=== PATIENT | male | born 1975 | race Caucasian/White ===

== ENCOUNTER 2018-01-23 04:34 | Inpatient (IN) | payer SELFPAY ==
[~2018-01-23] VITALS: Ht 175.3 cm; Wt 94.3 kg
[2018-01-23] VITALS (8 sets, daily range): BP systolic 134–153; BP diastolic 70–88
[2018-01-23] MEDS ORDERED: SODIUM CHLORIDE 0.9% 1,000 ML IV ONE (04:50)
[2018-01-23] MEDS ORDERED: ONDANSETRON HCL 4MG/2ML VIAL IV STA (04:50)
[2018-01-23] MEDS ORDERED: MIDAZOLAM HCL 2 MG/2 ML VIAL ONE (04:54)
[2018-01-23] MEDS: MIDAZOLAM HCL 2 MG/2 ML VIAL IV ONE ×2 (04:55→05:04)
[2018-01-23] MEDS ORDERED: LEVETIRACETAM 500MG PREMIX 100 ML IV ONE (05:00)
[2018-01-23 05:21] LABS: BASOPHILS % 0.7 % (0.0-2.0); EOSINOPHILS % 4.9 % (0.0-5.0); HEMATOCRIT. 35.5 % (42.0-52.0); HEMOGLOBIN. 11.9 g/dL (14.0-18.0); LYMPHOCYTES % 27.7 % (20.0-50.0); MEAN CORPUSCULAR HEMOGLOBIN 31.2 pg (28.0-32.0); MEAN CORPUSCULAR VOLUME 93.1 fL (80.0-94.0); MEAN PLATELET VOLUME 8.7 fl (7.4-10.4); MONOCYTES % 6.8 % (2.0-8.0); NEUTROPHILS % 59.9 % (40.0-76.0); PLATELET 117 x1000/uL (130-400); RED BLOOD CELL COUNT 3.81 mill/uL (4.7-6.1); RED CELL DISTRIBUTION WIDTH 14.7 % (11.6-14.6)
[2018-01-23 05:27] LABS: CHLORIDE 106 mEq/L (98-107)
[2018-01-23 05:28] LABS: INR 1.1
[2018-01-23 05:31] LABS: ETHANOL BLOOD < 10 mg/dL
[2018-01-23 05:38] LABS: CARBAMAZEPINE < 0.5 ug/mL (4-12); VALPROIC ACID < 3.0 ug/mL (50-100)
[2018-01-23 05:44] LABS: BG BASE EXCESS -7.9 mmol/L (-2.0-2.0); BG DEOXYHEMOGLOBIN 0.9 % (0.0-5.0); BG FRACTION INSPIRED OXYGEN 100; BG HCO3 ACT 19.4 mmol/L (22.0-26.0); BG METHEMOGLOBIN 0.4 % (0.0-1.5); BG OXYGEN SATURATION 99.1 % (92.0-98.5); BG OXYHEMOGLOBIN 97.7 % (94.0-97.0); BG PCO2 46.8 mmHg (35.0-45.0); BG PH 7.235 (7.350-7.450); BG PO2 301.4 mmHg (75.0-100.0); BG SAMPLE SITE RIGHT RADIAL; BG TOTAL HEMOGLOBIN 11.6 g/dL (12.0-18.0); BG VENT MODE MASK - NRB
[2018-01-23 06:16] LABS: CLARITY URINE CLEAR (CLEAR); COLOR URINE YELLOW (YELLOW); KETONES URINE NEGATIVE (NEGATIVE); LEUKOCYTE ESTERASE URINE NEGATIVE (NEGATIVE); NITRITE URINE NEGATIVE (NEGATIVE); OCCULT BLOOD URINE 3+ (NEGATIVE); PROTEIN URINE 2+ (NEGATIVE); UROBILINOGEN URINE 0.2 E.U./dL (0.2-1.0)
[2018-01-23] MEDS ORDERED: SODIUM CHLORIDE 0.9% 1,000 ML IV SCH (06:32)
[2018-01-23 06:33] LABS: *AMPHETAMINES SCREEN URINE NEGATIVE (NEGATIVE); *BARBITURATES SCREEN URINE NEGATIVE (NEGATIVE)
[2018-01-23 06:34] LABS: *BENZODIAZEPINES SCREEN URINE PRESUMTIVE POSITIVE (NEGATIVE); *COCAINE SCREEN URINE NEGATIVE (NEGATIVE); METHADONE URINE SCREEN NEGATIVE (NEGATIVE); OPIATES URINE SCREEN NEGATIVE (NEGATIVE); PHENCYCLIDINE URINE SCREEN NEGATIVE (NEGATIVE)
[2018-01-23 06:35] LABS: CANNABINOID URINE SCREEN NEGATIVE (NEGATIVE)
[2018-01-23] MEDS ORDERED: LORAZEPAM 2MG/ML CPJ IV ONE (07:45)
[2018-01-23] MEDS ORDERED: LORAZEPAM 2MG/ML CPJ ONE (07:45)
[2018-01-23] MEDS ORDERED: DEXTROSE 50% WATER 50ML SYRINGE IV PRN (09:15)
[2018-01-23] MEDS ORDERED: LORAZEPAM 2MG/ML CPJ IV PRN ×2 (09:15→15:15)
[2018-01-23] MEDS: LEVETIRACETAM 500 MG in SODIUM CHLORIDE 0.9% 100 ML IV SCH ×2 (11:19→20:58)
[2018-01-23] MEDS ORDERED: BLOOD SUGAR DIAGNOSTIC STRIP TEST SCH (12:30)
[2018-01-23] MEDS ORDERED: INSULIN LISPRO 100 UNITS/ML SUBCUT SCH (13:00)
[2018-01-23] MEDS ORDERED: CLONIDINE 0.1MG TABLET PO PRN (13:45)
[2018-01-23] MEDS ORDERED: FOLIC ACID 1MG TABLET PO SCH (15:00)
[2018-01-23] MEDS ORDERED: MULTIVITAMINS,THER W-MINERALS TABLET PO SCH (15:00)
[2018-01-23] MEDS ORDERED: THIAMINE HCL 100MG TABLET PO SCH (15:00)
[2018-01-23] MEDS: AMLODIPINE 5MG TABLET PO SCH ×3 (15:18→23:42)
[2018-01-23] MEDS: LISINOPRIL 20MG TABLET PO SCH (17:09)
[2018-01-23 18:02] LABS: CREATINE KINASE 479 IU/L (39-308)
[2018-01-23] MEDS: LORAZEPAM 2MG/ML CPJ IV PRN (22:12)
[2018-01-24] VITALS (12 sets, daily range): BP systolic 12–158; BP diastolic 7–82
[2018-01-24 07:17] LABS: CHLORIDE 113 mEq/L (98-107)
[2018-01-24 07:21] LABS: BASOPHILS % 0.3 % (0.0-2.0); EOSINOPHILS % 2.2 % (0.0-5.0); HEMATOCRIT. 33.1 % (42.0-52.0); HEMOGLOBIN. 11.3 g/dL (14.0-18.0); LYMPHOCYTES % 14.7 % (20.0-50.0); MEAN CORPUSCULAR HEMOGLOBIN 31.3 pg (28.0-32.0); MEAN CORPUSCULAR VOLUME 91.5 fL (80.0-94.0); MEAN PLATELET VOLUME 8.6 fl (7.4-10.4); MONOCYTES % 8.3 % (2.0-8.0); NEUTROPHILS % 74.5 % (40.0-76.0); PLATELET 86 x1000/uL (130-400); RED BLOOD CELL COUNT 3.61 mill/uL (4.7-6.1); RED CELL DISTRIBUTION WIDTH 14.9 % (11.6-14.6)
[2018-01-24] MEDS: LEVETIRACETAM 500 MG in SODIUM CHLORIDE 0.9% 100 ML IV SCH ×2 (09:43→22:32)
[2018-01-24] MEDS: LISINOPRIL 20MG TABLET PO SCH (09:44)
[2018-01-24] MEDS: AMLODIPINE 5MG TABLET PO SCH ×2 (09:44→21:52)
[2018-01-24] MEDS ORDERED: KEPP500 PO (14:33)
[2018-01-24] MEDS ORDERED: FERR325T6 PO (14:33)
[2018-01-24] MEDS ORDERED: FOLI-43 PO (14:33)
[2018-01-24] MEDS ORDERED: THIA100T72 PO (14:33)
[2018-01-24] MEDS ORDERED: MULT1TAB67 PO (14:33)
[2018-01-24 15:47] LABS: AMMONIA 63 uMol/L (<32)
[2018-01-25] VITALS: BP 135/71
[2018-01-25] MEDS: LORAZEPAM 2MG/ML CPJ IV PRN ×2 (01:50→20:12)
[2018-01-25] MEDS: AMLODIPINE 5MG TABLET PO SCH ×2 (09:00→20:59)
[2018-01-25] MEDS: LISINOPRIL 20MG TABLET PO SCH (09:00)
[2018-01-25 10:27] VITALS: BP 142/77
[2018-01-25] MEDS: LEVETIRACETAM 500 MG in SODIUM CHLORIDE 0.9% 100 ML IV SCH (10:36)
[2018-01-25 12:20] LABS: BASOPHILS % 0.4 % (0.0-2.0); EOSINOPHILS % 1.8 % (0.0-5.0); HEMATOCRIT. 33.4 % (42.0-52.0); HEMOGLOBIN. 11.6 g/dL (14.0-18.0); LYMPHOCYTES % 19.3 % (20.0-50.0); MEAN CORPUSCULAR HEMOGLOBIN 31.5 pg (28.0-32.0); MEAN CORPUSCULAR VOLUME 90.5 fL (80.0-94.0); MEAN PLATELET VOLUME 7.9 fl (7.4-10.4); NEUTROPHILS % 69.5 % (40.0-76.0); PLATELET 87 x1000/uL (130-400); RED BLOOD CELL COUNT 3.69 mill/uL (4.7-6.1); RED CELL DISTRIBUTION WIDTH 14.5 % (11.6-14.6)
[2018-01-25 12:40] LABS: CHLORIDE 113 mEq/L (98-107)
[2018-01-25 12:46] LABS: PHOSPHORUS 2.8 mg/dL (2.5-4.9)
[2018-01-25 13:24] VITALS: BP 142/77
[2018-01-25] MEDS: LACTULOSE 20G/30ML UDC PO SCH ×2 (15:15→20:55)
[2018-01-25 16:01] VITALS: BP 114/64
[2018-01-25 20:00] VITALS: BP 127/76
[2018-01-25] MEDS: CEFTRIAXONE 1 G PREMIX 50 ML IV SCH (23:09)
[2018-01-26] VITALS: BP 111/72
[2018-01-26 04:00] VITALS: BP 130/82
[2018-01-26] MEDS: LACTULOSE 20G/30ML UDC PO SCH ×3 (06:28→21:31)
[2018-01-26 08:00] VITALS: BP 106/61
[2018-01-26] MEDS: LISINOPRIL 20MG TABLET PO SCH (08:49)
[2018-01-26] MEDS: LEVETIRACETAM 500MG TABLET PO SCH ×2 (08:49→21:31)
[2018-01-26] MEDS: AMLODIPINE 5MG TABLET PO SCH ×2 (08:50→21:31)
[2018-01-26] MEDS: THIAMINE HCL 100MG TABLET PO SCH (09:41)
[2018-01-26 12:00] VITALS: BP 96/57
[2018-01-26] MEDS: LORAZEPAM 2MG/ML CPJ IV PRN ×2 (15:38→21:32)
[2018-01-26 16:00] VITALS: BP 162/90
[2018-01-26 20:00] VITALS: BP 143/76
[2018-01-26] MEDS: CEFTRIAXONE 1 G PREMIX 50 ML IV SCH (23:42)
[2018-01-27] VITALS: BP 109/54
[2018-01-27 04:00] VITALS: BP 115/64
[2018-01-27] MEDS: LACTULOSE 20G/30ML UDC PO SCH ×2 (06:20→15:48)
[2018-01-27 07:17] LABS: BASOPHILS % 0.5 % (0.0-2.0); EOSINOPHILS % 5.3 % (0.0-5.0); HEMATOCRIT. 32.3 % (42.0-52.0); HEMOGLOBIN. 11.3 g/dL (14.0-18.0); LYMPHOCYTES % 23.2 % (20.0-50.0); MEAN CORPUSCULAR HEMOGLOBIN 31.4 pg (28.0-32.0); MEAN PLATELET VOLUME 8.2 fl (7.4-10.4); MONOCYTES % 10.5 % (2.0-8.0); NEUTROPHILS % 60.5 % (40.0-76.0); PLATELET 94 x1000/uL (130-400); RED BLOOD CELL COUNT 3.59 mill/uL (4.7-6.1); RED CELL DISTRIBUTION WIDTH 14.4 % (11.6-14.6)
[2018-01-27 07:21] LABS: CHLORIDE 114 mEq/L (98-107)
[2018-01-27 07:33] LABS: PHOSPHORUS 3.8 mg/dL (2.5-4.9)
[2018-01-27 08:00] VITALS: BP 114/58
[2018-01-27] MEDS: AMLODIPINE 5MG TABLET PO SCH (08:18)
[2018-01-27] MEDS: LISINOPRIL 20MG TABLET PO SCH (08:18)
[2018-01-27] MEDS: THIAMINE HCL 100MG TABLET PO SCH (08:18)
[2018-01-27] MEDS: LEVETIRACETAM 500MG TABLET PO SCH (08:19)
[2018-01-27 12:00] VITALS: BP 118/61
[2018-01-27 16:00] VITALS: BP 125/69
[2018-01-27] MEDS ORDERED: FOLIC ACID 1MG TABLET PO SCH (16:15)
[2018-01-27] MEDS ORDERED: THIAMINE HCL 100MG TABLET PO SCH (16:15)
[2018-01-27 17:43] VITALS: BP 127/72
[2018-01-28] MEDS ORDERED: LEVETIRACETAM 500MG TABLET PO SCH (17:00)
== END 2018-01-27 18:10 | disposition home or self-care (01) | DRG 42 ==
LOC: ER 04:40 → 5EST 06:34 → EDBEDREQ 06:43 → EDBEDREQTM 06:43 → EDBEDREQSVC 06:43 → CANRESERV 06:51 → ENRESERV 06:51 → 6EST 01-25 13:20
PROVIDERS: ADMIT Internal Medicine Nephrology; ATTEND Internal Medicine Nephrology
DX: G31.2 Degeneration of nervous system due to alcohol (principal); E87.2 Acidosis; E87.0 Hyperosmolality and hypernatremia; D69.6 Thrombocytopenia, unspecified; E44.1 Mild protein-calorie malnutrition; G40.409 Other generalized epilepsy and epileptic syndromes, not intractable, without status epilepticus; D63.8 Anemia in other chronic diseases classified elsewhere; F17.210 Nicotine dependence, cigarettes, uncomplicated; I10 Essential (primary) hypertension; K72.90 Hepatic failure, unspecified without coma; N39.0 Urinary tract infection, site not specified; E87.6 Hypokalemia; E66.9 Obesity, unspecified; Z68.30 Body mass index [BMI] 30.0-30.9, adult; Z91.19 Patient's noncompliance with other medical treatment and regimen; Z71.6 Tobacco abuse counseling
CPT/HCPCS: 36415; 36600; 70450; 70551; 71045; 80048; 80053; 80156; 80165; 80185; 80305; 81003; 82024; 82140; 82375; 82550; 82805; 82962; 83036; 83605; 83735; 84100; 84484; 85025; 85610; 87040; 93005; 93970; 96361; 96374; 96375; 97116; 97162; 99291; G0482; J0696; J1953; J2060; J2250; J2405; J7030; J7050

== ENCOUNTER 2022-07-23 15:21 | Emergency (ER) | payer MEDICAID, OTHER ==
[~2022-07-23] VITALS: Ht 165.1 cm; Wt 75.0 kg
[~2022-07-23 15:21] MED LIST: FERR325T6 PO; FOLI-43 PO; KEPP500 PO; MULT-622 PO; THIA100T72 PO
[2022-07-23 15:30] VITALS: BP 152/89
[2022-07-23 16:53] LABS: BASOPHILS % 0.4 % (0.0-2.0); EOSINOPHILS % 2.1 % (0.0-5.0); HEMATOCRIT. 32.9 % (42.0-52.0); HEMOGLOBIN. 11.3 g/dL (14.0-18.0); LYMPHOCYTES % 10.7 % (20.0-50.0); MEAN CORPUSCULAR HEMOGLOBIN 32.5 pg (28.0-32.0); MEAN CORPUSCULAR VOLUME 94.8 fL (80.0-94.0); MEAN PLATELET VOLUME 7.9 fl (7.4-10.4); MONOCYTES % 7.5 % (2.0-8.0); NEUTROPHILS % 79.3 % (40.0-76.0); PLATELET 130 x1000/uL (130-400); RED BLOOD CELL COUNT 3.48 mill/uL (4.7-6.1); RED CELL DISTRIBUTION WIDTH 14.1 % (11.6-14.6)
[2022-07-23 17:01] LABS: PROTHROMBIN TIME 10.9 sec (9.6-11.0)
[2022-07-23 17:04] LABS: CHLORIDE 113 mEq/L (98-107)
[2022-07-23 17:08] LABS: CLARITY URINE CLEAR (CLEAR); COLOR URINE YELLOW (YELLOW); KETONES URINE TRACE (NEGATIVE); LEUKOCYTE ESTERASE URINE NEGATIVE (NEGATIVE); NITRITE URINE NEGATIVE (NEGATIVE); OCCULT BLOOD URINE 3+ (NEGATIVE); PROTEIN URINE 3+ (NEGATIVE); SPECIFIC GRAVITY URINE 1.015 (1.005-1.030)
[2022-07-23] MEDS ORDERED: SODIUM CHLORIDE 0.9% 500 ML IV ONE (19:45)
[2022-07-23] MEDS ORDERED: PANTOPRAZOLE SODIUM 40 MG/VIAL IV NR (19:45)
== END 2022-07-24 01:00 | disposition short-term general hospital (02) ==
LOC: ER 15:21
DX: N17.9 Acute kidney failure, unspecified (principal); D64.9 Anemia, unspecified; K56.41 Fecal impaction; K74.60 Unspecified cirrhosis of liver; E83.51 Hypocalcemia; E86.0 Dehydration; R62.7 Adult failure to thrive; R56.9 Unspecified convulsions; Z20.822 Contact with and (suspected) exposure to COVID-19
CPT/HCPCS: 36415; 74176; 80053; 81003; 83690; 85025; 85610; 87426; 96361; 96374; 99284; C9113; C9803

== ENCOUNTER 2022-08-25 09:52 | Emergency (ER) | payer MEDICAID ==
[~2022-08-25] VITALS: Ht 167.6 cm; Wt 82.0 kg
[2022-08-25 10:09] VITALS: BP 133/71
== END 2022-08-25 16:23 | disposition home or self-care (01) ==
LOC: ER 09:52
DX: R60.0 Localized edema (principal); Z86.73 Personal history of transient ischemic attack (TIA), and cerebral infarction without residual deficits
CPT/HCPCS: 93971; 99284

== ENCOUNTER 2023-11-02 11:06 | Inpatient (IN) | payer OTHER ==
[~2023-11-02] VITALS: Ht 170.2 cm; Wt 89.4 kg
[~2023-11-02 11:06] MED LIST changes: +CLOP75TA33 PO; +LEVE750T10 PO; +POTA-205 MT
[2023-11-02 11:58] LABS: BASOPHILS % 1.2 % (0.0-2.0); EOSINOPHILS % 5.7 % (0.0-5.0); HEMATOCRIT. 23.7 % (42.0-52.0); HEMOGLOBIN. 7.9 g/dL (14.0-18.0); LYMPHOCYTES % 19.4 % (20.0-50.0); MEAN CORPUSCULAR HEMOGLOBIN 30.3 pg (28.0-32.0); MEAN CORPUSCULAR HGB CONC 33.4 g/dL (31.0-37.0); MEAN CORPUSCULAR VOLUME 90.9 fL (80.0-94.0); MEAN PLATELET VOLUME 6.9 fl (7.4-10.4); MONOCYTES % 10.5 % (2.0-8.0); NEUTROPHILS % 63.2 % (40.0-76.0); PLATELET 158 x1000/uL (130-400); RED BLOOD CELL COUNT 2.61 mill/uL (4.7-6.1); RED CELL DISTRIBUTION WIDTH 17.6 % (11.6-14.6); WHITE BLOOD COUNT 3.1 x1000/uL (4.5-11.0)
[2023-11-02 12:01] LABS: POTASSIUM 4.6 mEq/L (3.5-5.1)
[2023-11-02 12:03] LABS: CALCIUM 8.2 mg/dL (8.7-10.4)
[2023-11-02 12:22] LABS: CREATININE 5.1 mg/dL (0.6-1.3)
[2023-11-02 13:51] LABS: INR 1.1; PARTIAL THROMBOPLASTIN TIME 29.8 sec (23.4-31.0)
[2023-11-02 14:30] LABS: CLARITY URINE CLEAR (CLEAR); COLOR URINE YELLOW (YELLOW); GLUCOSE URINE NEGATIVE (NEGATIVE); KETONES URINE NEGATIVE (NEGATIVE); LEUKOCYTE ESTERASE URINE NEGATIVE (NEGATIVE); NITRITE URINE NEGATIVE (NEGATIVE); OCCULT BLOOD URINE 2+ (NEGATIVE); PROTEIN URINE 4+ (NEGATIVE); SPECIFIC GRAVITY URINE 1.015 (1.005-1.030); UROBILINOGEN URINE 0.2 E.U./dL (0.2-1.0)
[2023-11-02 14:50] LABS: TROPONIN I HIGH SENSITIVITY 9 ng/L (3.0-53)
[2023-11-02 14:51] LABS: FINE GRANULAR CASTS URINE 0-5 /lpf
[2023-11-02 14:52] LABS: RBC URINE 25-50 /hpf (0-2)
[2023-11-02 14:53] LABS: SQUAMOUS EPITHELIAL CELL URINE RARE /lpf (RARE/1+)
[2023-11-02 14:54] LABS: BACTERIA URINE TRACE
[2023-11-02 15:16] LABS: HEPATITIS B SURFACE ANTIGEN NEGATIVE (Negative)
[2023-11-02 15:30] VITALS: BP 165/81; PULSE 67; RESP 16; TEMP 97.9
[2023-11-02] MEDS ORDERED: ONDANSETRON HCL 4MG/2ML INJ IV PRN ×2 (15:30→22:15)
[2023-11-02] MEDS ORDERED: DOCUSATE SODIUM 100MG CAPSULE PO PRN (15:30)
[2023-11-02] MEDS ORDERED: ACETAMINOPHEN 325MG TABLET PO PRN (15:30)
[2023-11-02] MEDS ORDERED: IPRATROPIUM/ALBUTEROL 0.5-3(2.5)MG/3ML NEB HHN PRN (15:30)
[2023-11-02] MEDS ORDERED: MAGNESIUM/ALUMINUM HYDROXIDE/SIMETHICONE 30ML UDC PO PRN (15:30)
[2023-11-02] MEDS ORDERED: GUAIFENESIN 200MG/10ML SUGAR FREE UDC PO PRN (15:30)
[2023-11-02 15:34] LABS: HEPATITIS C AB NON REACTIVE (Neg) (Negative)
[2023-11-02 15:37] LABS: HEPATITIS B CORE AB IGM NEGATIVE (Negative)
[2023-11-02 15:46] LABS: PHOSPHORUS 6.3 mg/dL (2.5-4.9)
[2023-11-02 16:05] LABS: IRON 90 ug/dL (65-175)
[2023-11-02 16:06] LABS: LDL CHOLESTEROL 45 mg/dL (5-100); TRIGLYCERIDE 49 mg/dL (0-150)
[2023-11-02 16:07] LABS: ALANINE AMINOTRANSFERASE 9 IU/L (10-49); ALBUMIN 3.6 g/dL (3.2-4.8); ASPARTATE AMINOTRANSFERASE 44 IU/L (<34); BILIRUBIN DIRECT 0.4 mg/dL (<=3.0); CHOLESTEROL 107 mg/dL (<200); HDL CHOLESTEROL 53 mg/dL (>55)
[2023-11-02 16:08] LABS: BILIRUBIN TOTAL 0.9 mg/dL (0.1-1.0); TOTAL IRON BINDING CAPACITY 129 ug/dl (250-425)
[2023-11-02 17:00] LABS: FERRITIN 645 ng/mL (22-322); FOLIC ACID (FOLATE) SERUM > 20.00 ng/mL (>5.38); VITAMIN B12 SERUM 861 pg/mL (211-911)
[2023-11-02] MEDS: LEVETIRACETAM 500MG TABLET PO SCH (17:03)
[2023-11-02] MEDS: ACETAMINOPHEN 325MG TABLET PO PRN (17:04)
[2023-11-02] MEDS: CLONIDINE 0.1MG TABLET PO PRN (21:10)
[2023-11-02] MEDS ORDERED: IPRATROPIUM/ALBUTEROL 0.5-3(2.5)MG/3ML NEB NEB PRN (22:15)
[2023-11-02] MEDS ORDERED: NALOXONE HCL 0.4MG/ML VIAL IV PRN (22:30)
[2023-11-02] MEDS: MULTIVITAMINS,THER W-MINERALS TABLET PO SCH (23:18)
[2023-11-03] VITALS (9 sets, daily range): BP systolic 133–185; BP diastolic 69–92; PULSE 55–76; RESP 16–19; TEMP 97.5–98.4
[2023-11-03 00:08] LABS: TROPONIN I HIGH SENSITIVITY 9 ng/L (3.0-53)
[2023-11-03 00:09] LABS: CREATINE KINASE 118 IU/L (46-171)
[2023-11-03 06:29] LABS: HEMATOCRIT 25.5 % (42.0-52.0); HEMOGLOBIN 8.5 g/dL (14.0-18.0); MEAN CORPUSCULAR HEMOGLOBIN 29.8 pg (28.0-32.0); MEAN CORPUSCULAR HGB CONC 33.3 g/dL (31.0-37.0); MEAN CORPUSCULAR VOLUME 89.5 fL (80.0-94.0); PLATELET 155 x1000/uL (130-400); RED BLOOD CELL COUNT 2.84 mill/uL (4.7-6.1); RED CELL DISTRIBUTION WIDTH 17.3 % (11.6-14.6); WHITE BLOOD COUNT 2.7 x1000/uL (4.5-11.0)
[2023-11-03 06:42] LABS: CHLORIDE 111 mEq/L (98-107); POTASSIUM 4.7 mEq/L (3.5-5.1); SODIUM 141 mEq/L (136-145)
[2023-11-03 06:43] LABS: CARBON DIOXIDE 20 mEq/L (21-32)
[2023-11-03 06:48] LABS: CREATININE 4.9 mg/dL (0.6-1.3); GLUCOSE 80 mg/dL (70-105); UREA NITROGEN BLOOD 70 mg/dL (9-23)
[2023-11-03] MEDS ORDERED: HEPARIN 1000 UNITS/ML 10ML ONE (07:03)
[2023-11-03] MEDS ORDERED: CEFAZOLIN 1000MG PREMIX 50 ML IV ONE (07:03)
[2023-11-03] MEDS ORDERED: LIDOCAINE HCL 1% 10 MG/ML 10ML VIAL ONE (07:03)
[2023-11-03] MEDS ORDERED: CEFAZOLIN 1000MG PREMIX 50 ML IV NR (07:30)
[2023-11-03] MEDS ORDERED: CLOPIDOGREL 75MG TABLET PO SCH (09:00)
[2023-11-03 10:27] LABS: TROPONIN I HIGH SENSITIVITY 8 ng/L (3.0-53)
[2023-11-03 10:28] LABS: CREATINE KINASE 110 IU/L (46-171)
[2023-11-03] MEDS: HYDROCODONE/ACETAMINOPHEN 7.5/325MG TABLET PO PRN (14:31)
[2023-11-03] MEDS: MORPHINE SULFATE 2 MG/ML CPJ (NOT FOR IM USE) IV PRN (16:47)
[2023-11-04] VITALS: BP 117/59; PULSE 60; RESP 20; TEMP 97.9
[2023-11-04 04:00] VITALS: BP 129/61; PULSE 71; RESP 20; TEMP 97.5
[2023-11-04 08:00] VITALS: BP 126/62; PULSE 60; RESP 60; TEMP 98.1
[2023-11-04 08:15] LABS: POTASSIUM 4.5 mEq/L (3.5-5.1)
[2023-11-04 08:22] LABS: CALCIUM 8.2 mg/dL (8.7-10.4)
[2023-11-04 08:27] LABS: CREATININE 4.2 mg/dL (0.6-1.3)
[2023-11-04 08:38] LABS: HEMATOCRIT 21.9 % (42.0-52.0); HEMOGLOBIN 7.4 g/dL (14.0-18.0); MEAN CORPUSCULAR HEMOGLOBIN 30.1 pg (28.0-32.0); MEAN CORPUSCULAR HGB CONC 33.9 g/dL (31.0-37.0); MEAN CORPUSCULAR VOLUME 88.8 fL (80.0-94.0); PLATELET 138 x1000/uL (130-400); RED BLOOD CELL COUNT 2.47 mill/uL (4.7-6.1); RED CELL DISTRIBUTION WIDTH 17.1 % (11.6-14.6); WHITE BLOOD COUNT 2.9 x1000/uL (4.5-11.0)
[2023-11-04 12:00] VITALS: BP 134/68; PULSE 65; RESP 19; TEMP 98.4
[2023-11-04 16:00] VITALS: BP 139/72; PULSE 66; RESP 19; TEMP 96.9
[2023-11-04 20:00] VITALS: BP 150/81; PULSE 66; RESP 20; TEMP 98.2
[2023-11-05] VITALS (7 sets, daily range): BP systolic 122–157; BP diastolic 67–88; PULSE 60–70; RESP 18–20; TEMP 97.5–99.5
[2023-11-06] VITALS: BP 130/60; PULSE 63; RESP 18; TEMP 99
[2023-11-06 04:00] VITALS: BP 137/65; PULSE 67; RESP 18; TEMP 99.1
[2023-11-06 08:00] VITALS: BP 156/65; PULSE 61; RESP 22; TEMP 97.4
[2023-11-06 08:03] LABS: BASOPHILS % 1.4 % (0.0-2.0); EOSINOPHILS % 5.7 % (0.0-5.0); HEMOGLOBIN. 7.4 g/dL (14.0-18.0); LYMPHOCYTES % 24.6 % (20.0-50.0); MEAN CORPUSCULAR HEMOGLOBIN 29.6 pg (28.0-32.0); MEAN CORPUSCULAR HGB CONC 33.6 g/dL (31.0-37.0); MEAN CORPUSCULAR VOLUME 88.1 fL (80.0-94.0); MEAN PLATELET VOLUME 6.8 fl (7.4-10.4); MONOCYTES % 11.7 % (2.0-8.0); NEUTROPHILS % 56.6 % (40.0-76.0); PLATELET 109 x1000/uL (130-400); RED BLOOD CELL COUNT 2.49 mill/uL (4.7-6.1); RED CELL DISTRIBUTION WIDTH 17.1 % (11.6-14.6); WHITE BLOOD COUNT 2.4 x1000/uL (4.5-11.0)
[2023-11-06 08:19] LABS: POTASSIUM 4.3 mEq/L (3.5-5.1)
[2023-11-06 08:21] LABS: CALCIUM 8.2 mg/dL (8.7-10.4)
[2023-11-06 12:00] VITALS: BP 159/74; PULSE 96; RESP 18; TEMP 98.7
[2023-11-06 16:00] VITALS: BP 159/82; PULSE 89; RESP 18; TEMP 97.5
[2023-11-06 20:00] VITALS: BP 168/76; PULSE 62; RESP 18; TEMP 99.1
[2023-11-07] VITALS (10 sets, daily range): BP systolic 122–164; BP diastolic 67–94; PULSE 57–68; RESP 18; TEMP 97–99
[2023-11-07 05:53] LABS: POTASSIUM 4.1 mEq/L (3.5-5.1)
[2023-11-07 05:55] LABS: CALCIUM 8.5 mg/dL (8.7-10.4)
[2023-11-07 05:59] LABS: CREATININE 4.2 mg/dL (0.6-1.3)
[2023-11-07 06:04] LABS: BASOPHILS % 1.2 % (0.0-2.0); HEMATOCRIT. 21.6 % (42.0-52.0); HEMOGLOBIN. 7.4 g/dL (14.0-18.0); LYMPHOCYTES % 23.1 % (20.0-50.0); MEAN CORPUSCULAR HEMOGLOBIN 30.3 pg (28.0-32.0); MEAN CORPUSCULAR HGB CONC 34.3 g/dL (31.0-37.0); MEAN CORPUSCULAR VOLUME 88.2 fL (80.0-94.0); MEAN PLATELET VOLUME 7.1 fl (7.4-10.4); MONOCYTES % 13.3 % (2.0-8.0); NEUTROPHILS % 56.4 % (40.0-76.0); PLATELET 99 x1000/uL (130-400); RED BLOOD CELL COUNT 2.45 mill/uL (4.7-6.1); RED CELL DISTRIBUTION WIDTH 16.6 % (11.6-14.6); WHITE BLOOD COUNT 2.7 x1000/uL (4.5-11.0)
[2023-11-08] VITALS (16 sets, daily range): BP systolic 148–173; BP diastolic 45–89; PULSE 54–98; RESP 12–20; TEMP 97.6–98.4
[2023-11-08] MEDS ORDERED: LIDOCAINE HCL 1% 10 MG/ML 10ML VIAL ONE ×2 (10:57→13:53)
[2023-11-08] MEDS ORDERED: FENTANYL CITRATE/PF 50MCG/ML 2ML VIAL ONE (10:58)
[2023-11-08] MEDS: CEFAZOLIN 1000MG PREMIX 50 ML IV NR (11:00)
[2023-11-08] MEDS: FENTANYL CITRATE/PF 50MCG/ML 2ML VIAL IV ONE (11:05)
[2023-11-09] VITALS (7 sets, daily range): BP systolic 115–182; BP diastolic 66–87; PULSE 61–99; RESP 18–20; TEMP 97.8–99.7; O2SAT 100
[2023-11-09] MEDS: AMLODIPINE 10MG TABLET PO SCH (09:21)
[2023-11-09] MEDS ORDERED: AMLO10TA80 PO (09:56)
== END 2023-11-09 15:05 | disposition home or self-care (01) | DRG 425 ==
LOC: ER 11:06 → 7WST 13:40
PROVIDERS: ADMIT Internal Medicine Nephrology; ATTEND Internal Medicine Nephrology
PROC: 02H633Z Insertion of Infusion Device into Right Atrium, Percutaneous Approach (ICD-10-PCS; 2023-11-03)
PROC: B5181ZA Fluoroscopy of Superior Vena Cava using Low Osmolar Contrast, Guidance (ICD-10-PCS; 2023-11-03)
PROC: 5A1D70Z Performance of Urinary Filtration, Intermittent, Less than 6 Hours Per Day (ICD-10-PCS; 2023-11-03)
PROC: 5A1D70Z Performance of Urinary Filtration, Intermittent, Less than 6 Hours Per Day (ICD-10-PCS; 2023-11-05)
PROC: 5A1D70Z Performance of Urinary Filtration, Intermittent, Less than 6 Hours Per Day (ICD-10-PCS; 2023-11-07)
PROC: 0JH63XZ Insertion of Tunneled Vascular Access Device into Chest Subcutaneous Tissue and Fascia, Percutaneous Approach (ICD-10-PCS; principal; 2023-11-08)
PROC: 02HV33Z Insertion of Infusion Device into Superior Vena Cava, Percutaneous Approach (ICD-10-PCS; 2023-11-08)
PROC: B5181ZA Fluoroscopy of Superior Vena Cava using Low Osmolar Contrast, Guidance (ICD-10-PCS; 2023-11-08)
PROC: 5A1D70Z Performance of Urinary Filtration, Intermittent, Less than 6 Hours Per Day (ICD-10-PCS; 2023-11-09)
DX: E87.70 Fluid overload, unspecified (principal); I12.0 Hypertensive chronic kidney disease with stage 5 chronic kidney disease or end stage renal disease; I27.20 Pulmonary hypertension, unspecified; K72.10 Chronic hepatic failure without coma; D63.8 Anemia in other chronic diseases classified elsewhere; N18.6 End stage renal disease; E11.22 Type 2 diabetes mellitus with diabetic chronic kidney disease; Z20.822 Contact with and (suspected) exposure to COVID-19; F17.210 Nicotine dependence, cigarettes, uncomplicated; G40.909 Epilepsy, unspecified, not intractable, without status epilepticus; K74.60 Unspecified cirrhosis of liver; Z79.02 Long term (current) use of antithrombotics/antiplatelets; Z86.73 Personal history of transient ischemic attack (TIA), and cerebral infarction without residual deficits; Z99.2 Dependence on renal dialysis; Z79.899 Other long term (current) drug therapy
CPT/HCPCS: 12001; 36415; 36556; 36558; 36589; 71045; 76937; 77001; 80048; 80061; 80076; 81003; 82550; 82607; 82728; 82746; 83036; 83540; 83550; 83735; 83880; 83970; 84100; 84484; 85025; 85027; 86705; 86706; 86850; 86900; 87340; 87426; 90935; 93005; 93306; 93970; 99152; 99153; 99285; C1750; C1752; C1769; J0690; J1642; J1644; J2270; J3010; J3490; G0500